=== PATIENT | male | born 1945 | race Caucasian/White ===

== ENCOUNTER 2019-02-27 11:56 | Outpatient (CLI) | payer BC ==
--- NOTE | 2019-02-27 13:09 | ULT ---
VENOUS DOPPLER ULTRASOUND OF THE RIGHT LOWER EXTREMITY: HISTORY: Pain and edema in the right lower leg. TECHNIQUE: [place]i scale ultrasound with color flow and spectral Doppler imaging of the deep venous system of the r ight lower extremity is performed. FINDINGS: There is good flow, compression, and augmentation of the right common femoral, femoral, deep femoral, popliteal, posterior tibial, and greater saphenous veins. IMPRESSION: No evidence of deep vein thrombosis in the right lower extremity. POS: [facility]
== END 2019-02-27 11:57 | disposition home or self-care (01) ==
LOC: BICULT 11:56
PROVIDERS: ATTEND Family Medicine
DX: M79.604 Pain in right leg (principal)

== ENCOUNTER 2022-03-17 14:06 | Outpatient (CLI) | payer BC, MEDICARE | END 2022-03-17 14:07 | disposition home or self-care (01) | LOC: BICRAD 14:06 | PROVIDERS: ATTEND Family Medicine | DX: M79.642 Pain in left hand (principal) ==

== ENCOUNTER 2023-06-03 09:43 | Outpatient (CLI) | payer MEDICARE, BC | END 2023-06-03 09:44 | disposition home or self-care (01) | LOC: SCSCT 09:43 | PROVIDERS: ATTEND Internal Medicine | DX: R05.3 Chronic cough (principal); R91.8 Other nonspecific abnormal finding of lung field | CPT/HCPCS: 71250 ==

== ENCOUNTER 2023-07-19 13:17 | Outpatient (CLI) | payer MEDICARE, BC | END 2023-07-19 13:18 | disposition home or self-care (01) | LOC: RAD 13:17 | PROVIDERS: ATTEND Internal Medicine | DX: R06.00 Dyspnea, unspecified (principal); J98.4 Other disorders of lung | CPT/HCPCS: 71046 ==

== ENCOUNTER 2023-10-23 11:36 | Inpatient (IN) | payer MEDICARE, BC ==
[2023-10-23] MEDS ORDERED: Iopamidol-370 76% 500 ML MDV (1 ML CHARGE) ONE (12:00)
[2023-10-23 13:32] LABS: #Basophils 0.1 thou/uL (0.0-0.2); #Eosinphils 0.1 thou/uL (0.0-0.7); #Monocytes 0.5 thou/uL (0.11-0.59); #Neutrophils 6.6 thou/uL (1.40-6.50); %Basophils 0.8 % (0.0-1.0); %Eosinophils 1.3 % (0.0-10.0); %Lymphocytes 13.9 % (21.0-51.0); %Monocytes 6.3 % (0.0-10.0); %Neutrophils 77.6 % (42.0-75.0); Hematocrit 38.6 % (42.0-52.0); Hemoglobin 13.4 g/dL (14.0-18.0); Mean Corpuscular HGB CONC 34.7 g/dL (32.0-36.0); Mean Corpuscular Hemoglobin 32.8 pg (27.0-31.0); Mean Corpuscular Volume 94.4 fl (78.0-98.0); Platelet Count 189 10x3/uL (130-400); RBC Distribution Width 12.6 % (11.5-14.5); Red Blood Cell (RBC) Count 4.09 mill/uL (4.70-6.10); White Blood Cell (WBC) Count 8.5 10x3/uL (4.8-10.8)
[2023-10-23 13:58] LABS: ALT (SGPT) 16 U/L (8-55); AST (SGOT) 22 U/L (5-34); Albumin 4.1 g/dL (3.4-4.8); Alkaline Phosphatase 81 U/L (40-110); Anion Gap 10 mmol/L (10-20); BUN (Urea Nitrogen) 17 mg/dL (8.4-25.7); Bilirubin, Total 1.1 mg/dL (0.2-1.2); Calc. Creatinine Clearance 0 mL/min (70-130); Calcium 9.3 mg/dL (7.8-10.44); Carbon Dioxide 25 mmol/L (23-31); Chloride 103 mmol/L (98-107); Estimated GFR 89; Globulin 3.3 g/dL (2.4-3.5); Glucose 98 mg/dL (83-110); Potassium 3.9 mmol/L (3.5-5.1); Protein, Total 7.4 g/dL (5.8-8.1); Sodium 134 mmol/L (136-145)
[2023-10-23 14:08] LABS: Troponin I 0.015 ng/mL (< 0.028)
[2023-10-23 14:18] LABS: INR-International Normal Ratio 1.1; PTT 36.4 sec (22.9-36.1); Prothrombin Time 14.2 sec (12.0-14.7)
[2023-10-23] MEDS ORDERED: Ondansetron PF 4 MG/2 ML Vial IVP PRN (15:33)
[2023-10-23] MEDS ORDERED: Azithromycin 500 MG VIAL ONE (15:44)
[2023-10-23] MEDS ORDERED: Sodium Chloride 0.9% 250 ML 0 ML ONE (15:45)
[2023-10-23] MEDS ORDERED: LevoFLOXacin 500 mg/D5W 500 MG in Premix 1 BAG IVPB SCH (15:45)
[2023-10-23] MEDS ORDERED: Sodium Chloride 0.9% 250 ML 250 ML ONE (15:46)
[2023-10-23] MEDS ORDERED: cefTRIAXone (ROCEPHIN) 1 GM VIAL ONE (15:46)
[2023-10-23] MEDS ORDERED: Sodium Chloride 0.9% 100 ML ONE (16:12)
[2023-10-23] MEDS ORDERED: Benzonatate 100 MG CAP PO PRN (17:12)
[2023-10-23] MEDS ORDERED: guaiFENesin/Codeine 200 mg/20 mg 10 ml Cup PO PRN (17:13)
[2023-10-23] MEDS ORDERED: Melatonin 3 MG TAB PO PRN (17:15)
[2023-10-23 19:44] LABS: SARS-CoV-2 NAA Rapid Test Not Detected (NotDetected)
[2023-10-23] MEDS: Sodium Chloride 0.9% 1,000 ML IV SCH (20:30)
[2023-10-23] MEDS: Mirtazapine 15 MG TAB PO SCH (20:32)
[2023-10-23] MEDS: Senokot S 8.6-50 MG TAB PO SCH (20:32)
[2023-10-23] MEDS: Metoprolol Tartrate 25 MG TAB PO SCH (20:35)
[2023-10-23] MEDS: Acetaminophen 325 MG TAB PO PRN (20:37)
[2023-10-23 20:48] VITALS: BMI 22.4
[2023-10-24] MEDS: Sodium Chloride 0.9% 1,000 ML IV SCH (04:45)
[2023-10-24 05:33] LABS: #Basophils 0.1 thou/uL (0.0-0.2); #Eosinphils 0.1 thou/uL (0.0-0.7); #Monocytes 0.7 thou/uL (0.11-0.59); #Neutrophils 6.3 thou/uL (1.40-6.50); %Basophils 0.6 % (0.0-1.0); %Lymphocytes 16.7 % (21.0-51.0); %Monocytes 8.6 % (0.0-10.0); %Neutrophils 72.9 % (42.0-75.0); Hematocrit 33.8 % (42.0-52.0); Hemoglobin 11.4 g/dL (14.0-18.0); Mean Corpuscular HGB CONC 33.7 g/dL (32.0-36.0); Mean Corpuscular Hemoglobin 32.3 pg (27.0-31.0); Mean Corpuscular Volume 95.8 fl (78.0-98.0); Mean Platelet Volume 12.3 fL (7.4-10.4); Platelet Count 159 10x3/uL (130-400); RBC Distribution Width 12.6 % (11.5-14.5); Red Blood Cell (RBC) Count 3.53 mill/uL (4.70-6.10); White Blood Cell (WBC) Count 8.6 10x3/uL (4.8-10.8)
[2023-10-24 06:01] LABS: Anion Gap 6 mmol/L (10-20); BUN (Urea Nitrogen) 19 mg/dL (8.4-25.7); Calc. Creatinine Clearance 80 mL/min (70-130); Calcium 8.6 mg/dL (7.8-10.44); Carbon Dioxide 27 mmol/L (23-31); Chloride 106 mmol/L (98-107); Estimated GFR 90; Glucose 86 mg/dL (83-110); Potassium 3.4 mmol/L (3.5-5.1); Sodium 136 mmol/L (136-145)
[2023-10-24] MEDS ORDERED: Aspirin 81 mg Enteric Coated Tablet PO SCH (09:00)
[2023-10-24] MEDS: Polyethylene Glycol 3350 17 GM Packet PO SCH (09:46)
[2023-10-24] MEDS: Senokot S 8.6-50 MG TAB PO SCH ×2 (09:47→20:20)
[2023-10-24] MEDS: Metoprolol Tartrate 25 MG TAB PO SCH ×2 (09:47→20:18)
[2023-10-24] MEDS: Saccharomyces boulardii 250 MG CAP PO SCH (09:58)
[2023-10-24] MEDS ORDERED: Bisacodyl 10 MG SUPP PR SCH (11:45)
[2023-10-24] MEDS: Azithromycin 500 MG in Sodium Chloride 0.9% 250 ML 250 ML IVPB SCH (15:51)
[2023-10-24] MEDS: cefTRIAXone\\ROCEPHIN 1 GM in Sodium Chloride 0.9% 100 ML IVPB SCH (15:51)
[2023-10-24] MEDS: Atorvastatin Calcium 10 MG TAB PO SCH (20:17)
[2023-10-24] MEDS: Melatonin 3 MG TAB PO SCH (20:18)
[2023-10-24] MEDS: Mirtazapine 15 MG TAB PO SCH (20:25)
[2023-10-24] MEDS: DorzolamidE/Timolol 2%/0.5% Ophth Soln 10 ml Bottle EA EYE SCH (20:27)
[2023-10-24] MEDS: Latanoprost 0.005% Ophth Soln 2.5 ml Bottle EA EYE SCH (20:27)
[2023-10-24] MEDS ORDERED: Mirtazapine 15 MG TAB PO SCH (21:00)
[2023-10-25 05:32] LABS: #Basophils 0.1 thou/uL (0.0-0.2); #Monocytes 0.9 thou/uL (0.11-0.59); #Neutrophils 11.9 thou/uL (1.40-6.50); %Basophils 0.6 % (0.0-1.0); %Eosinophils 0.3 % (0.0-10.0); %Lymphocytes 8.3 % (21.0-51.0); %Monocytes 6.6 % (0.0-10.0); %Neutrophils 83.8 % (42.0-75.0); Hematocrit 35.1 % (42.0-52.0); Hemoglobin 11.9 g/dL (14.0-18.0); Mean Corpuscular HGB CONC 33.9 g/dL (32.0-36.0); Mean Corpuscular Hemoglobin 32.2 pg (27.0-31.0); Mean Corpuscular Volume 94.9 fl (78.0-98.0); Mean Platelet Volume 12.5 fL (7.4-10.4); Platelet Count 183 10x3/uL (130-400); RBC Distribution Width 12.6 % (11.5-14.5); White Blood Cell (WBC) Count 14.2 10x3/uL (4.8-10.8)
[2023-10-25 05:56] LABS: Anion Gap 12 mmol/L (10-20); BUN (Urea Nitrogen) 12 mg/dL (8.4-25.7); Calc. Creatinine Clearance 80 mL/min (70-130); Calcium 8.7 mg/dL (7.8-10.44); Carbon Dioxide 21 mmol/L (23-31); Chloride 103 mmol/L (98-107); Estimated GFR 90; Glucose 105 mg/dL (83-110); Potassium 3.4 mmol/L (3.5-5.1); Sodium 133 mmol/L (136-145)
[2023-10-25] MEDS ORDERED: Metoprolol Tartrate 5 MG/5 ML VIAL IVP SCH (06:45)
[2023-10-25] MEDS ORDERED: Potassium Chloride 20 MEQ TAB PO SCH (08:00)
[2023-10-25] MEDS ORDERED: FLU VACC QS2023(65UP)/MF59C/PF 60 MCG/0.5 ML SYRINGE IM ONE (09:00)
[2023-10-25] MEDS: Polyethylene Glycol 3350 17 GM Packet PO SCH (09:51)
[2023-10-25] MEDS: Metoprolol Tartrate 25 MG TAB PO SCH ×2 (09:52→20:50)
[2023-10-25] MEDS: Senokot S 8.6-50 MG TAB PO SCH ×2 (09:52→23:59)
[2023-10-25] MEDS: Artificial Tear Sol 15 ML BOT EA EYE SCH (09:52)
[2023-10-25] MEDS: Dutasteride 0.5 MG CAP PO SCH (09:52)
[2023-10-25] MEDS: Saccharomyces boulardii 250 MG CAP PO SCH (09:52)
[2023-10-25] MEDS: DorzolamidE/Timolol 2%/0.5% Ophth Soln 10 ml Bottle EA EYE SCH ×2 (09:53→20:51)
[2023-10-25] MEDS ORDERED: Sodium Chloride 0.9% 500 ML IV SCH (11:15)
[2023-10-25] MEDS: cefTRIAXone\\ROCEPHIN 1 GM in Sodium Chloride 0.9% 100 ML IVPB SCH (15:22)
[2023-10-25] MEDS: Azithromycin 500 MG in Sodium Chloride 0.9% 250 ML 250 ML IVPB SCH (16:26)
[2023-10-25] MEDS: Mirtazapine 15 MG TAB PO SCH (20:50)
[2023-10-25] MEDS: Melatonin 3 MG TAB PO SCH (20:50)
[2023-10-25] MEDS: Latanoprost 0.005% Ophth Soln 2.5 ml Bottle EA EYE SCH (20:51)
[2023-10-25] MEDS: Atorvastatin Calcium 10 MG TAB PO SCH (20:51)
[2023-10-26] MEDS ORDERED: Digoxin 0.5 MG/2 ML AMP SLOW IVP SCH (01:45)
[2023-10-26 04:44] LABS: #Basophils 0.1 thou/uL (0.0-0.2); #Eosinphils 0.1 thou/uL (0.0-0.7); #Neutrophils 7.8 thou/uL (1.40-6.50); %Basophils 0.5 % (0.0-1.0); %Eosinophils 0.5 % (0.0-10.0); %Lymphocytes 11.5 % (21.0-51.0); %Monocytes 10.2 % (0.0-10.0); Hematocrit 32.7 % (42.0-52.0); Hemoglobin 10.9 g/dL (14.0-18.0); Mean Corpuscular HGB CONC 33.3 g/dL (32.0-36.0); Mean Corpuscular Hemoglobin 32.3 pg (27.0-31.0); Mean Platelet Volume 12.5 fL (7.4-10.4); Platelet Count 167 10x3/uL (130-400); RBC Distribution Width 12.8 % (11.5-14.5); Red Blood Cell (RBC) Count 3.37 mill/uL (4.70-6.10); White Blood Cell (WBC) Count 10.2 10x3/uL (4.8-10.8)
[2023-10-26 05:40] LABS: Anion Gap 11 mmol/L (10-20); BUN (Urea Nitrogen) 15 mg/dL (8.4-25.7); Calc. Creatinine Clearance 73 mL/min (70-130); Calcium 8.6 mg/dL (7.8-10.44); Carbon Dioxide 23 mmol/L (23-31); Chloride 102 mmol/L (98-107); Estimated GFR 86; Glucose 105 mg/dL (83-110); Magnesium 1.8 mg/dL (1.6-2.6); Potassium 3.4 mmol/L (3.5-5.1); Sodium 133 mmol/L (136-145)
[2023-10-26] MEDS: Aspirin 81 mg Enteric Coated Tablet PO SCH (09:57)
[2023-10-26] MEDS: Senokot S 8.6-50 MG TAB PO SCH ×2 (09:57→21:14)
[2023-10-26] MEDS: DorzolamidE/Timolol 2%/0.5% Ophth Soln 10 ml Bottle EA EYE SCH ×3 (09:58→20:37)
[2023-10-26] MEDS: Metoprolol Tartrate 25 MG TAB PO SCH ×2 (09:58→20:37)
[2023-10-26] MEDS: Saccharomyces boulardii 250 MG CAP PO SCH (09:58)
[2023-10-26] MEDS: Polyethylene Glycol 3350 17 GM Packet PO SCH (09:58)
[2023-10-26] MEDS: Dutasteride 0.5 MG CAP PO SCH (09:58)
[2023-10-26] MEDS: Artificial Tear Sol 15 ML BOT EA EYE SCH (10:06)
[2023-10-26] MEDS: cefTRIAXone\\ROCEPHIN 1 GM in Sodium Chloride 0.9% 100 ML IVPB SCH (16:10)
[2023-10-26] MEDS: Azithromycin 500 MG in Sodium Chloride 0.9% 250 ML 250 ML IVPB SCH (16:12)
[2023-10-26] MEDS ORDERED: Azithromycin 250 MG TAB PO SCH (16:15)
[2023-10-26] MEDS: Acetaminophen 325 MG TAB PO PRN (20:34)
[2023-10-26] MEDS: Melatonin 3 MG TAB PO SCH (20:36)
[2023-10-26] MEDS: Atorvastatin Calcium 10 MG TAB PO SCH (20:36)
[2023-10-26] MEDS: Mirtazapine 15 MG TAB PO SCH (20:37)
[2023-10-26] MEDS: Cefdinir 300 MG CAP PO SCH (20:37)
[2023-10-26] MEDS: Latanoprost 0.005% Ophth Soln 2.5 ml Bottle EA EYE SCH (20:38)
[2023-10-27 04:53] LABS: #Basophils 0.1 thou/uL (0.0-0.2); #Eosinphils 0.2 thou/uL (0.0-0.7); #Neutrophils 7.2 thou/uL (1.40-6.50); %Basophils 0.5 % (0.0-1.0); %Eosinophils 2.3 % (0.0-10.0); %Lymphocytes 7.6 % (21.0-51.0); %Monocytes 10.8 % (0.0-10.0); %Neutrophils 78.5 % (42.0-75.0); Hematocrit 31.1 % (42.0-52.0); Hemoglobin 10.5 g/dL (14.0-18.0); Mean Corpuscular HGB CONC 33.8 g/dL (32.0-36.0); Mean Corpuscular Hemoglobin 32.7 pg (27.0-31.0); Mean Corpuscular Volume 96.9 fl (78.0-98.0); Mean Platelet Volume 12.3 fL (7.4-10.4); Platelet Count 160 10x3/uL (130-400); RBC Distribution Width 12.5 % (11.5-14.5); Red Blood Cell (RBC) Count 3.21 mill/uL (4.70-6.10); White Blood Cell (WBC) Count 9.2 10x3/uL (4.8-10.8)
[2023-10-27 08:09] LABS: Anion Gap 11 mmol/L (10-20); BUN (Urea Nitrogen) 13 mg/dL (8.4-25.7); Calc. Creatinine Clearance 87 mL/min (70-130); Calcium 8.2 mg/dL (7.8-10.44); Carbon Dioxide 21 mmol/L (23-31); Chloride 103 mmol/L (98-107); Estimated GFR 92; Glucose 96 mg/dL (83-110); Potassium 3.9 mmol/L (3.5-5.1); Sodium 131 mmol/L (136-145)
[2023-10-27] MEDS ORDERED: Azithromycin 250 MG TAB PO SCH (09:00)
[2023-10-27] MEDS: Polyethylene Glycol 3350 17 GM Packet PO SCH (09:31)
[2023-10-27] MEDS: Senokot S 8.6-50 MG TAB PO SCH (09:31)
[2023-10-27] MEDS: Saccharomyces boulardii 250 MG CAP PO SCH (09:32)
[2023-10-27] MEDS: Cefdinir 300 MG CAP PO SCH (09:32)
[2023-10-27] MEDS: Aspirin 81 mg Enteric Coated Tablet PO SCH (09:32)
[2023-10-27] MEDS: Metoprolol Tartrate 25 MG TAB PO SCH (09:32)
[2023-10-27] MEDS: Dutasteride 0.5 MG CAP PO SCH (09:32)
[2023-10-27] MEDS: Artificial Tear Sol 15 ML BOT EA EYE SCH (09:32)
[2023-10-27] MEDS: DorzolamidE/Timolol 2%/0.5% Ophth Soln 10 ml Bottle EA EYE SCH (09:32)
[2023-10-27 16:34] VITALS: BP 143/82; TEMP 98.1
[2023-10-28] MEDS ORDERED: Losartan 25 MG TAB PO SCH (09:00)
== END 2023-10-27 17:12 | disposition home or self-care (01) | DRG 178 ==
LOC: ERS 11:36 → IMCU/EMU 16:01 → SURG A 10-24 18:42 → 2SE 10-25 06:45
PROVIDERS: ADMIT Internal Medicine; ATTEND Internal Medicine
DX: J15.69 Pneumonia due to other Gram-negative bacteria (principal); E87.1 Hypo-osmolality and hyponatremia; I48.92 Unspecified atrial flutter; J47.9 Bronchiectasis, uncomplicated; Z66 Do not resuscitate; N40.0 Benign prostatic hyperplasia without lower urinary tract symptoms; L03.032 Cellulitis of left toe; H40.9 Unspecified glaucoma; I95.9 Hypotension, unspecified; R91.8 Other nonspecific abnormal finding of lung field; F41.9 Anxiety disorder, unspecified; F32.A Depression, unspecified; G62.9 Polyneuropathy, unspecified; D64.9 Anemia, unspecified; K59.00 Constipation, unspecified; E87.6 Hypokalemia; Z88.2 Allergy status to sulfonamides; Z79.82 Long term (current) use of aspirin; Z79.899 Other long term (current) drug therapy; Z79.2 Long term (current) use of antibiotics; Z98.890 Other specified postprocedural states; Z90.5 Acquired absence of kidney; Z11.52 Encounter for screening for COVID-19
CPT/HCPCS: 36415; 71045; 71275; 74018; 80048; 80053; 83735; 84484; 85025; 85610; 85730; 93005; 93010; 93306; 96365; 96367; J0456; J0696; J1160; J3490; J7050; Q9967

== ENCOUNTER 2024-04-21 17:59 | Emergency (ER) | payer BC, MEDICARE ==
[2024-04-21] MEDS ORDERED: Morphine 4 MG/ML VIAL ONE (20:15)
[2024-04-21] MEDS ORDERED: Ondansetron PF 4 MG/2 ML Vial ONE (20:15)
[2024-04-21 21:11] LABS: #Basophils 0.08 10x3/uL (0.0-0.2); %Basophils 0.7 % (0.0-1.0); %Eosinophils 2.4 % (0.0-10.0); %Lymphocytes 14.6 % (21.0-51.0); %Monocytes 6.6 % (0.0-10.0); %Neutrophils 75.3 % (42.0-75.0); Hematocrit 30.6 % (42.0-52.0); Hemoglobin 10.2 g/dL (14.0-18.0); Mean Corpuscular HGB CONC 33.3 g/dL (32.0-36.0); Mean Platelet Volume 11.3 fL (7.4-10.4); Platelet Count 444 10x3/uL (130-400); RBC Distribution Width 13.8 % (11.5-14.5); Red Blood Cell (RBC) Count 3.29 mill/uL (4.70-6.10)
[2024-04-21 21:27] LABS: Bacteria/HPF None Seen HPF (None Seen); Bilirubin Negative (Negative); Blood, Urine 3+ (Negative); CAUTI Indications for Culture Acute Hematuria; Clarity Turbid (Clear); Glucose, Urine (Dipstick) 30 mg/dL (Negative); Ketone, Urine Negative (Negative); Leukocyte Negative Leu/uL (Negative); Nitrite Negative (Negative); Protein, Urine (Dipstick) 600 mg/dL (Neg-Trace); RBC/HPF Greater than 50 HPF (0-3); Specific Gravity, Urine 1.026 (1.002-1.036); Squamous Epithelial None Seen HPF (0-3); Urobilinogen Normal mg/dL (Less than 2); WBC/HPF 0-3 HPF (0-3)
[2024-04-21 21:29] LABS: Anion Gap 8 mmol/L (10-20); BUN (Urea Nitrogen) 20 mg/dL (8.4-25.7); Calc. Creatinine Clearance 0 mL/min (70-130); Carbon Dioxide 22 mmol/L (23-31); Chloride 98 mmol/L (98-107); Potassium 3.6 mmol/L (3.5-5.1); Sodium 124 mmol/L (136-145)
[2024-04-21 21:30] LABS: Urine Culture Reflex No No
[2024-04-21 21:30] LABS: ALT (SGPT) 17 U/L (8-55); AST (SGOT) 24 U/L (5-34); Albumin 3.3 g/dL (3.4-4.8); Alkaline Phosphatase 87 U/L (40-110); Bilirubin, Total 0.5 mg/dL (0.2-1.2); Calcium 9.4 mg/dL (7.8-10.44); Estimated GFR 84; Globulin 4.6 g/dL (2.4-3.5); Glucose 111 mg/dL (83-110); Protein, Total 7.9 g/dL (5.8-8.1)
== END 2024-04-21 22:04 | disposition home or self-care (01) ==
LOC: ERS 17:59
DX: R31.9 Hematuria, unspecified (principal); R33.9 Retention of urine, unspecified
CPT/HCPCS: 51702; 80053; 81001; 85025; 96374; 96375; 99283; J2270; J2405